=== PATIENT | female | born 1970 | race Caucasian/White ===

== ENCOUNTER 2017-04-20 05:37 | Day surgery (SDC) | payer OTHER, SELFPAY ==
[2017-04-20] VITALS (11 sets, daily range): BP systolic 115–152; BP diastolic 64–88
[~2017-04-20] VITALS: Ht 172.7 cm; Wt 104.3 kg
[2017-04-20] MEDS ORDERED: ALPRAZOLAM0.25 MG ORAL (06:15)
[2017-04-20] MEDS ORDERED: VITAMIN D2000 UNI3 PO (06:15)
[2017-04-20] MEDS ORDERED: ALIGN4 M1 PO (06:15)
[2017-04-20] MEDS ORDERED: ALLEGRA-D 24 H1 EACH PO (06:15)
[2017-04-20] MEDS ORDERED: cefOXitin 2gm Inj ONE (06:57)
[2017-04-20] MEDS ORDERED: LR 1000ml ONE (07:30)
[2017-04-20] MEDS ORDERED: Ketorolac 30mg Inj ONE (07:30)
[2017-04-20] MEDS ORDERED: NS Irrig 1000ml ONE (07:30)
[2017-04-20] MEDS ORDERED: Propofol 200mg/20ml IV ONE (07:30)
[2017-04-20] MEDS ORDERED: Sterile Water Irrig 1000ml IRRIG ONE (07:30)
[2017-04-20] MEDS ORDERED: Midazolam 2mg/2ml Inj ONE (07:30)
[2017-04-20] MEDS ORDERED: fentaNYL 100 mcg/2 mL IV ONE (07:30)
--- NOTE | 2017-04-20 07:34 | Pre-Procedure Note/Attestation ---
Pre-Procedure Note/Attestation Complete Prior to Procedure Planned Procedure: not applicable Procedure Narrative: Hysteroscopy, dilation and curettage Indications for Procedure Pre-Operative Diagnosis: endometrial hyperplasia Attestation I attest that I discussed the nature of the procedure; its benefits; risks and complications; and alternatives (and the risks and benefits of such alternatives ), prior to the procedure, with the patient (or the patient's legal tax compliance representative). I attest that, if there was a reasonable possibility of needing a blood transfusion, the patient (or the patient's legal tax compliance representative) was given the [facility] standardized written summary, pursuant to the Gabriel Jeremias Blood Safety Act ([place] Health and Safety Code # 1645, as amended). I attest that I re-evaluated the patient just prior to the surgery and that there has been no change in the patient's H&P, except as documented below: JONAS REICH Apr 20, 2017 07:34
[2017-04-20] MEDS ORDERED: HYDROmorphone 1mg/ml Carpuject SUBQ PRN (07:45)
[2017-04-20] MEDS ORDERED: Norco 5mg/325mg tab ORAL PRN (07:45)
[2017-04-20] MEDS ORDERED: Tylenol #3 tab (300mg/30mg) ORAL PRN (07:45)
[2017-04-20] MEDS ORDERED: LR 1000ml 1,000 ML IVLG SCH (08:04)
--- NOTE | 2017-04-20 08:04 | Anethesia Preoperative Eval ---
Anesthesia Pre-op PMH/ROS General Date of Evaluation: Apr 20, 2017 Time of Evaluation: 07:18 Anesthesiologist: Jerica ASA Score: ASA 2 Mallampati Score Class I : Soft palate, uvula, fauces, pillars visible Class II: Soft palate, uvula, fauces visible Class III: Soft palate, base of uvula visible Class IV: Only hard plate visible Mallampati Classification: Class II Surgeon: Marito Diagnosis: Endometrial hyperplasia Surgical Procedure: D&C Hysteroscopy Anesthesia History: none Family History: no anesthesia problems Allergies: Coded Allergies: CLINDAMYCIN (Verified Allergy, Unknown, 04/19/17) PENICILLINS (Verified Allergy, Unknown, 04/19/17) SULFA (SULFONAMIDE ANTIBIOTICS) (Verified Allergy, Unknown, 04/19/17) Past Medical History Cardiovascular: Denies: HTN, CAD, [place], valve dz, arrhythmia, other Pulmonary: Reports: asthma - mild, Denies: COPD, DMITRI, other Gastrointestinal/Genitourinary: Reports: GERD, Denies: CRI, ESRD, other Neurologic/Psychiatric: Reports: depression/anxiety, Denies: dementia, CVA, TIA, other Endocrine: Reports: other - h/o seizers, Denies: DM, hypothyroidism, steroids HEENT: Denies: cataract (L), cataract (R), glaucoma, BEAVER (L), BEAVER (R), other Hematology/Immune: Denies: anemia, DVT, bleeding disorder, other Musculoskeletal/Integumentary: Denies: OA, RA, DJD, DDD, edema, other Other: obesity PMH Narrative: as above PSxH Narrative: none Anesthesia Pre-op Phys. Exam Physician Exam Last Vital Signs Date Time Temp Pulse Resp B/P (MAP) Pulse Ox O2 Delivery O2 Flow Rate FiO2 04/20/17 06:03 97.0 86 18 152/88 99 Room Air Constitutional: NAD Neurologic: CN 2-12 intact Cardiovascular: RRR Respiratory: CTA, other Gastrointestinal: other - obesity Airway Exam Mallampati Score: Class II MO: full Neck: short ROM: full Teeth: intact Dentures: no upper, no lower Anesthesia Pre-op A/P Labs see chart Studies Pre-op Studies: EKG - SR Risk Assessment & Plan Assessment: ASA 2 Plan: GA with LMA Status Change Before Surgery: No Pre-Antibiotics Drug: Cefoxitin 2 gr. Given Within 1 Hr of Incision: Yes Time Given: 07:55 BERNARDA ALAN M.D. Apr 20, 2017 08:04
[2017-04-20] MEDS ORDERED: Ketorolac 30mg Inj IV PRN (08:15)
[2017-04-20] MEDS ORDERED: Meperidine 50mg/ml Inj(FOR RIGORS ONLY) IV PRN ×2 (08:15)
[2017-04-20] MEDS ORDERED: Hydromorphone 0.5mg/0.5ml inj IVP PRN (08:15)
[2017-04-20] MEDS ORDERED: DiphenhydrAMINE 50mg/ml Inj IVP PRN (08:15)
--- NOTE | 2017-04-20 08:26 | Immediate Post-Op Evaluation ---
Immediate Post-Op Evalulation Immediate Post-Op Evalulation Procedure: D&C Hysteroscopy Date of Evaluation: Apr 20, 2017 Time of Evaluation: 08:25 IV Fluids: 800 Blood Products: none Estimated Blood Loss: <50 Urinary Output: 100 Blood Pressure Systolic: 129 Blood Pressure Diastolic: 78 Pulse Rate: 86 Respiratory Rate: 20 O2 Sat by Pulse Oximetry: 99 Temperature (Fahrenheit): 97.8 Pain Score (1-10): 2 Nausea: No Vomiting: No Complications none Patient Status: reacts, patent, none Hydration Status: adequate BERNARDA ALAN M.D. Apr 20, 2017 08:26
[2017-04-20] MEDS ORDERED: D5 1/2NS 1,000 ML IV SCH (11:00)
--- NOTE | 2017-04-20 11:32 | 48 Hour Post Anesthesia Eval ---
Post Anesthesia Evaluation Procedure: D&C Hysteroscopy Date of Evaluation: Apr 20, 2017 Time of Evaluation: 11:30 Blood Pressure Systolic: 128 0: 74 Pulse Rate: 82 Respiratory Rate: 20 Temperature (Fahrenheit): 97.6 O2 Sat by Pulse Oximetry: 98 Airway: patent Nausea: No Vomiting: No Pain Intensity: 2 Hydration Status: adequate Cardiopulmonary Status: stable Mental Status/LOC: patient returned to baseline Follow-up Care/Observations: n/a Post-Anesthesia Complications: none Follow-up care needed: ready to discharge BERNARDA ALAN M.D. Apr 20, 2017 11:32
--- NOTE | 2017-04-25 20:58 | Brief Operative Note ---
Immediate Post Operative Note Operative Note Pre-op Diagnosis: endometrial hyperplasia Procedure: Hysteroscopy dilation and curettage Post-op Diagnosis: same and proliferative type endometrium observed Surgeon: dominick sheth Anesthesiologist: suellen Anesthesia: general Specimen: yes Complications: none Condition: stable Fluids: per anesthesia Estimated Blood Loss: minimal Drains: none Implant(s) used?: No DOMINICK SHETH Apr 25, 2017 20:58
--- NOTE | 2017-04-26 04:31 | Operative Note - Dictated ---
DATE OF OPERATION: 04/20/2017 PREOPERATIVE DIAGNOSIS: Endometrial hyperplasia. POSTOPERATIVE DIAGNOSIS: Endometrial hyperplasia. PROCEDURE: 1. Dilation and curettage. 2. Hysteroscopy. SURGEON: Gracie Devi M.D. ANESTHESIOLOGIST: Jovanny Pizano M.D. ESTIMATED BLOOD LOSS: Minimal. FLUIDS: 800 mL. BLOOD PRODUCTS: None. URINARY OUTPUT: 100 mL. PROCEDURE IN DETAIL: After ensuring informed consent, the patient was taken to the operating room where general anesthesia was induced. The patient was sterilely prepped and draped. Weighted speculum was placed in the vagina. Cervix was dilated to an 8 Hegar dilator. Hysteroscope was placed inside the uterine cavity. The uterine cavity was distended with normal saline. There was proliferative type endometrium observed that appeared excessive for a postmenopausal woman. Bilateral ostia were observed. Hysteroscope was removed and fractional curettage was performed. Then hysteroscope was replaced into the uterine cavity. The uterine cavity was intact and the gonsalez of the uterus were clean of tissue. All instruments and laps were removed from the vagina. There was no bleeding observed. At the end of the procedure, all instrument and lap counts were correct x2. Specimens was sent to pathology. The patient went to the recovery area, breathing on her own and in stable condition. Gracie Devi M.D. DR: MARYBETH JOB#: [id number] CC: ANGELLA
== END 2017-04-20 10:00 | disposition home or self-care (01) ==
LOC: SUR 05:37
DX: N85.02 Endometrial intraepithelial neoplasia [EIN] (principal); Z87.891 Personal history of nicotine dependence; F41.9 Anxiety disorder, unspecified; J45.909 Unspecified asthma, uncomplicated; M54.5 Low back pain; Z88.1 Allergy status to other antibiotic agents; Z88.0 Allergy status to penicillin; Z88.2 Allergy status to sulfonamides
CPT/HCPCS: 58558; J0694; J1885; J2250; J2405; J2704; J3010; J7120; 94003; 94150